=== PATIENT | male | born 1965 | race Caucasian/White ===

== ENCOUNTER 2024-02-07 11:12 | Inpatient (IN) | payer BC, SELFPAY ==
[2024-02-07 07:49] VITALS: BP 198/167
--- NOTE | 2024-02-07 08:06 | ED.GENMED ---
History of Present Illness
General
Chief Complaint: Fever
Source: patient and other (Friend)
Exam Limitations: none
Time Seen by Provider: 02/07/24 08:05
Nursing documentation reviewed up to this point in time: agreed with
History of Present Illness
History of Present Illness:
58-year-old male presents emergency room complaining of fever, tremors, stinging with urination yesterday. He had a similar episode when he had sepsis, and a heart valve problem. He was at [facility] when this happened.
Past History
Past History
ED Past Medical History: Valvular disease and Other (Mitral valve prolapse)
ED Past Surgical History: Cardiac (Mitral valve repair)
Social History
Tobacco: Non-smoker
Alcohol: Occasional
Drug: None
Personal:
Living: with family
Family History
Family History: Other (Noncontributory)
Review of Systems
Review of Systems
Allergies reviewed?: Yes
Constitutional: Reports fever and chills
EENT: Reports no symptoms
Respiratory: Reports no symptoms
Cardiac: Reports no symptoms
ABD/GI: Reports no symptoms
: Reports dysuria
Musculoskeletal: Reports no symptoms
Skin: Reports no symptoms
Neurological: Reports no symptoms
Endocrine: Reports no symptoms
Hematologic/Lymphatic: Reports no symptoms
Psychiatric: Reports no symptoms
Phy Exam
Physical Exam
Physical Exam:
Physical Exam
General: Fever 103.1
Neck: supple. no meningeal signs. normal posterior pharynx
Heart: s1/s2 regular rate and rhythm, no murmur. equal radial
pulses.
HEENT: Pupils equal round reactive to light, EOMI
Lungs: no acute respiratory distress. clear bilaterally
Abdomen: normal bowel sounds. not tender. no CVAT
Neuro: alert and oriented. no focal neurological deficits cranial nerves II through XII intact
Skin: no rash
Psychiatric: well kept. interactive and cooperative
Extremities: no edema. no calf tenderness. negative homans. good distal pulses
Sepsis
Sepsis Screening
Sepsis Assessment: Sepsis
Sepsis Screen
Sepsis Screen: Sepsis
Date: 02/07/24
Time: 13:54
Course
Orders/Labs/Results
Orders:
Orders
02/07/24 08:01
IV Insert/Care/Rem.- Treatment PRN
Straight cath- Treatment ONCE
02/07/24 08:15
IV Insert/Care/Rem.- Treatment PRN
Acetaminophen [Tylenol] 650 mg PO NOW STA
CR Chest - 2 Views Urgent
Comment:
Reason For Exam: fever
02/07/24 08:17
Complete Blood Count/With Diff Urgent
Comprehensive Metabolic Panel Urgent
Lactic Acid Q4H
Comment: ON ICE, CANCEL 2ND ORDER IF FIRST LACTIC ACID LEVEL <2
Urinalysis Reflex To Culture Urgent
Date Specimen was Collected: 02/07/24
Time Specimen was Collected: 08:02
Urine Microscopic Reflex Cult Urgent
Blood Culture Q30M
KRISTEN Source: Blood/Venous
Specimen Description:
Blood Culture Q30M
KRISTEN Source: Blood/Venous
Specimen Description:
Urine Culture Urgent
KRISTEN Source: U
Specimen Description:
Date Specimen was Collected: 02/07/24
Time Specimen was Collected: 08:02
02/07/24 08:22
COVID-19 Antigen Urgent
Source: Nasal Swab
Influenza A+B Rapid Molecular Urgent
KRISTEN Source: Nasal Swab
Specimen Description:
02/07/24 09:35
Cefepime HCl [Maxipime] 2,000 mg IV NOW STA
02/07/24 Lunch
Cholesterol Lowering
At Your Request: Non-Participating
Cholesterol Lowering: Sodium, 2 Gram
02/07/24 10:34
Admit/Transfer Patient As Directed
Co-Sign Provider:
Level of Care: Inpatient admission
Assign to:: Telemetry
Physician / Group: Dr. Etienne Leroy/Hospitalists
Diagnosis: Sepsis, urinary tract infection
Reason for Telemetry: Arrhythmia
Date to Stop Telemetry: 02/10/24
Time to Stop Telemetry: 11:00
Reason for Hospitalization: Sepsis, urinary tract infection
Expected length of stay greater than two midnights?: Yes
ELOS- Estimated Length of Stay in days: 2
I certify the patient meets the requirements for IP care: Yes
02/07/24 10:38
Code Status As Directed
Resuscitation Status: Full Code
02/07/24 12:00
CefTRIAXone [Rocephin] 1,000 mg IV Q24H
Sterile Water [Sterile Water For Injection] 10 ml IV Q24H
02/07/24 12:12
Aspirin Low Dose EC [Aspir Low (Enteric Coated)] 81 mg PO DAILY
Bisacodyl [Dulcolax] 10 mg RECTAL [id number] PRN
Docusate W/Senna [Senokot-S] 1 tablet PO BIDPRN PRN
Polyethylene Glycol Powder [Miralax] 17 grams PO DAILYPRN PRN
Rosuvastatin Calcium [Crestor] 20 mg PO DAILY
Valsartan [Diovan] 160 mg PO DAILY
02/07/24 12:12
Activity As Directed
Activity Level: As Tolerated
Intake/ Output As Directed
Frequency: q12h
Pneumatic Compression Sleeves As Directed
Type: Knee high
Vital Signs As Directed
Frequency: Per unit guidelines
DX Deep Vein Thrombosis Video Routine
02/07/24 12:15
Lactic Acid Q4H
Comment: ON ICE, CANCEL 2ND ORDER IF FIRST LACTIC ACID LEVEL <2
02/07/24 18:00
Enoxaparin Sodium [Lovenox] 40 mg SC QPM
02/08/24 06:00
Basic Metabolic Panel IN AM
Complete Blood Count/With Diff IN AM
Magnesium IN AM
02/09/24 06:00
Basic Metabolic Panel IN AM
Complete Blood Count/With Diff IN AM
02/10/24 06:00
Basic Metabolic Panel IN AM
Complete Blood Count/With Diff IN AM
02/10/24 11:00
DC Protocol for Telemetry ONCE
02/11/24 06:00
Basic Metabolic Panel IN AM
Complete Blood Count/With Diff IN AM
Abnormal Lab Results
02/07/24
08:17
Absolute Neuts (auto) 7.6 H 10^3/uL
(1.4-6.5)
Absolute Lymphs (auto) 0.4 L 10^3/uL
(1.2-3.4)
Neutrophils % 92.4 H %
(42.2-75.2)
Lymphocytes % 5.2 L %
(20.5-51.1)
Monocytes % 1.0 L %
(1.7-9.3)
Glucose 143 H mg/dl
(70-99)
Lactic Acid 2.1 H mmol/L
(0.7-2.0)
Ur Occult Blood Reflex 2+ A
(Negative)
Leukocyte Esterase Rfl 2+ A
(Negative)
Urine WBC (Reflex) 30-40 A /HPF
(0-5)
Urine Bacteria (Reflex) Few A
(Negative)
02/07/24 08:17
02/07/24 08:17
Vital Signs
Initial and Last Documented VS:
Initial Vital Signs
Temp Pulse Resp BP Pulse Ox
103.1 F H 108 20 198/167 97
02/07/24 07:49 02/07/24 07:49 02/07/24 07:49 02/07/24 07:49 02/07/24 07:49
Last Documented Vital Signs
Temp Pulse Resp BP Pulse Ox
98.3 F 92 18 125/67 96
02/07/24 12:09 02/07/24 12:09 02/07/24 12:09 02/07/24 12:09 02/07/24 12:09
MDM/Problems Addressed
Differential Diagnosis Includes:
Sepsis, UTI
MDM/Problems Addressed:
58-year-old male with fever, UTI. Admit to hospitalist. IV cefepime given.
Chronic conditions affecting care: Cardiomyopathy
*Radiology
Radiology exam reviewed: preliminary read by ED provider (Chest x-ray no acute findings)
*Pulse Oximetry
Patient hypoxic: no
*Critical Care Note
Total Time (30-74mins, 75-104mins- exclusive of procedures): Not Applicable
Patient Management
Social determinants of health affecting care: Living situation and Strong social support
Discussion with other providers: Hospitalist
Escalation/DeEscalation of care consider admission/obs:
Admit indicated
ED Attending Note
-
Portions of this chart may have been created with voice recognition software.� Occasional wrong word or��sound alike� substitutions may have occurred due to the inherent limitations of voice recognition software.
Discharge Plan
Departure
Patient Disposition: Admit
Date of Disposition: 02/07/24
Time of Disposition: 09:37
Admit to: Med/Surg
Presentation/result/management discussed w/ accepting MD/DO: Hospitalist
Patient with high blood pressure during this ER visit?: Yes
Condition: Good
Discharge Problem:
Acute UTI, Fever
Interventions
Interventions:
*Risk Screen - Suicide Last Done: 02/07/24 07:49
*General Assessment Last Done: 02/07/24 07:49
*Neglect/Abuse Screening Last Done: 02/07/24 08:26
ED- Fall Risk Assessment Last Done: 02/07/24 08:26
*ED COVID-19 Vaccine History Last Done: 02/07/24 07:49
*Nursing Disposition Last Done: 02/07/24 11:59
ED- Neurological Assessment Last Done: 02/07/24 08:26
ED-Skin Assessment Last Done: 02/07/24 08:26
Discharge Date and Time
Discharge Date/Time: 02/07/24 12:00
[2024-02-07 08:19] VITALS: BMI 34.2
[2024-02-07] MEDS: TYLENOL 650 MG PO (08:23)
[2024-02-07 08:44] LABS: Lactic Acid 2.1 mmol/L (0.7-2.0)
[2024-02-07 08:47] LABS: % Basophils 0.4 % (0-2); % Eosinophils 0.5 % (0-6); % Immature Granulocytes 0.5 % (0-0.5); % Lymphocytes 5.2 % (20.5-51.1); % Neutrophils 92.4 % (42.2-75.2); Absolute Lymphocytes 0.4 10^3/uL (1.2-3.4); Absolute Monocytes 0.1 10^3/uL (0.1-0.6); Absolute Neutrophils 7.6 10^3/uL (1.4-6.5); Hematocrit 47.5 % (39.0-52.0); Hemoglobin 16.5 g/dL (13.0-18.0); Mean Corp Hgb Conc. 34.7 g/dL (33.0-37.0); Mean Corpuscular Hgb 30.7 pg (27.0-31.0); Mean Corpuscular Volume 88.3 fL (80.0-94.0); Mean Platelet Volume 8.4 fL (7.4-10.4); Nucleated Red Blood Cells % 0 % (-); Platelet Count 157 10^3/uL (130-400); Red Blood Cell Count 5.38 10^6/uL (4.70-6.10); Red Cell Dist. Width 12.8 % (11.5-14.5); White Blood Cell Count 8.2 10^3/uL (4.8-10.8)
[2024-02-07 09:00] LABS: Urine Albumin Trace (Neg - Trace); Urine Bilirubin Negative (Negative); Urine Character Slightly Cloudy (Clear); Urine Color Yellow; Urine Glucose Negative (Negative); Urine Ketone Negative (Negative); Urine Leukocyte 2+ (Negative); Urine Nitrite Negative (Negative); Urine Occult Blood 2+ (Negative); Urine Urobilinogen Negative (Neg - 1+)
[2024-02-07 09:04] LABS: COVID-19 Antigen Negative (Negative)
[2024-02-07 09:10] LABS: ALT (SGPT) 37 U/L (0-50); AST (SGOT) 30 U/L (17-59); Albumin 4.7 g/dl (3.5-5.0); Alkaline Phosphatase 67 U/L (38-126); Blood Urea Nitrogen 16 mg/dl (9-20); Calcium 9.5 mg/dl (8.4-10.2); Carbon Dioxide 26 mmol/L (22-30); Chloride 101 mmol/L (98-107); Estimated Creatinine Clearance 103 ml/min; Glucose 143 mg/dl (70-99); Potassium 4.7 mmol/L (3.5-5.1); Sodium 139 mmol/L (135-145); Total Bilirubin 0.8 mg/dl (0.2-1.3); Total Protein 7.5 g/dl (6.3-8.2); eGFR > 60.00
[2024-02-07 09:11] LABS: Urine Bacteria Few (Negative); Urine Squamous Cell 0-2 /LPF (Few)
[2024-02-07 09:13] LABS: Urine Mucus Moderate
[2024-02-07 09:14] LABS: Urine Sperm Seen; Urine White Cell 30-40 /HPF (0-5)
[2024-02-07 09:15] LABS: Urine Red Blood Cell 0-2 /HPF (0-2)
--- NOTE | 2024-02-07 09:53 | HPS.HSE ---
Family Physician
-
Family Physician: Aroldo Woodard
Chief Complaint
-
Fever, Chills and Burning with Urination
History of Present Illness
58 y/o male with past medical history of deviated nasal septum, high PSA (with negative prostate biopsy), hypertension, mitral valve prolapse status post mitral valve repair, and gastroesophageal reflux disease, presented with fever, shaking chills,
burning with urination. Patient said that yesterday he noticed burning with urination, and this morning he went to work. Once he reached work, he noticed he was having shaking chills and fever, with symptoms getting worse. He denied any other
complaints.
Medical History
Past Medical History
Past Medical History: Reports Other (As per HPI above)
Past Surgical History: Reports Cardiac (Mitral Valve Repair)
Social History
Tobacco: Former Smoker
Alcohol: Occasional
Drug: Marijuana (gummies)
Family History
Family History: Not pertinent
Allergies / Home Medications
Allergies reflects when Allergies were last updated in [facility].
Home Medications with original date entered in [facility]
Allergy/Medication List:
Allergies
Allergy/AdvReac Type Severity Reaction Status Date / Time
No Known Allergies Allergy Verified 02/07/24 07:53
Home Medications
aspirin 81 mg tablet,delayed release 81 mg PO DAILY 02/07/24
rosuvastatin 20 mg tablet (Crestor) 20 mg PO DAILY 02/07/24
valsartan 160 mg tablet 160 mg PO DAILY 02/07/24
Review of Systems
-
A 12 point ROS was completed and negative except as noted: Yes
Physical Exam
Vital Signs
Vital Signs
Temp Pulse Resp BP Pulse Ox
103.1 F H 105 20 198/167 97
02/07/24 07:49 02/07/24 08:26 02/07/24 07:49 02/07/24 07:49 02/07/24 07:49
Physical Exam
General: No Apparent Distress, Comfortable and Conversant
HEENT: NormoCephalic and Moist mucous membranes
Respiratory: Clear
Cardiac: S1/S2 and Regular Rhythm
GI: Soft, Non Tender and Normal Bowel Sounds
Musculoskeletal: No Cyanosis and No Edema
Skin: Warm and Dry
Neuro: Awake, Alert and AO x 3
Psych: Calm and Intact Judgment/Insight
Laboratory Results
-
02/07/24 08:17
02/07/24 08:17
Laboratory Results
Lactic Acid 2.1 mmol/L (0.7-2.0) H 02/07/24 08:17
Total Bilirubin 0.8 mg/dl (0.2-1.3) 02/07/24 08:17
AST 30 U/L (17-59) 02/07/24 08:17
ALT 37 U/L (0-50) 02/07/24 08:17
Alkaline Phosphatase 67 U/L (38-126) 02/07/24 08:17
Impression/Plan
-
Assessment/Plan
Urinary Tract Infection
Sepsis Secondary to Urinary Tract Infection
Mild Lactic Acidosis
-Continue antibiotics with Rocephin
-Follow blood cultures and follow urine cultures
-Continue to monitor on telemetry
-Recheck lactic acid
-IV fluid boluses given lactic acidosis and hypotension earlier
Deviated nasal septum
High PSA (with negative prostate biopsy)
Hypertension
-Continue home Valsartan but hold for SBP<110 mmHg
Mitral valve prolapse status post mitral valve repair
Gastroesophageal reflux disease
DVT Prophylaxis: Lovenox
Code Status: Full Code
[2024-02-07] MEDS: MAXIPIME 2000 MG IV (09:58)
[2024-02-07 09:59] VITALS: BP 96/67
[2024-02-07 12:09] VITALS: BP 125/67
[2024-02-07 12:10] VITALS: BMI 32.2
--- NOTE | 2024-02-07 12:35 | PTCARENOTE ---
1205 Pt received from ED via stretcher. Pt ambulated from stretcher to room with steady gait. Pt oriented to staff and environment.
[2024-02-07] MEDS: ASPIR LOW (ENTERIC COATED) 81 MG PO (12:48)
[2024-02-07] MEDS: CRESTOR 20 MG PO (12:48)
[2024-02-07] MEDS: STERILE WATER FOR INJECTION 10 ML IV (12:49)
[2024-02-07] MEDS: ROCEPHIN 1000 MG IV (12:49)
[2024-02-07] MEDS: DIOVAN 160 MG PO (12:58)
[2024-02-07 14:39] LABS: Lactic Acid 2.2 mmol/L (0.7-2.0)
[2024-02-07 15:35] VITALS: BP 139/72
[2024-02-07] MEDS: NSS IV (16:49)
[2024-02-07] MEDS: NSS 1000 IV (16:57)
[2024-02-07] MEDS: LOVENOX 40 MG SC (17:20)
[2024-02-07 20:26] VITALS: BP 187/83
[2024-02-07 23:39] VITALS: BP 176/82
[2024-02-08 01:14] LABS: Lactic Acid 0.9 mmol/L (0.7-2.0)
[2024-02-08 01:20] LABS: Blood Urea Nitrogen 16 mg/dl (9-20); Calcium 9.1 mg/dl (8.4-10.2); Carbon Dioxide 22 mmol/L (22-30); Chloride 105 mmol/L (98-107); Estimated Creatinine Clearance 124 ml/min; Glucose 126 mg/dl (70-99); Potassium 4.1 mmol/L (3.5-5.1); Sodium 137 mmol/L (135-145); eGFR > 60.00
[2024-02-08 03:32] VITALS: BP 124/70
[2024-02-08 07:33] VITALS: BP 120/69
[2024-02-08 07:37] LABS: % Basophils 0.3 % (0-2); % Eosinophils 0.2 % (0-6); % Immature Granulocytes 0.8 % (0-0.5); % Lymphocytes 9.6 % (20.5-51.1); % Monocytes 7.6 % (1.7-9.3); % Neutrophils 81.5 % (42.2-75.2); Absolute Immature Granulocytes 0.1 10^3/uL (0-0.05); Absolute Lymphocytes 1.3 10^3/uL (1.2-3.4); Absolute Neutrophils 10.6 10^3/uL (1.4-6.5); Hematocrit 45.8 % (39.0-52.0); Hemoglobin 15.1 g/dL (13.0-18.0); Mean Corpuscular Volume 90.9 fL (80.0-94.0); Mean Platelet Volume 8.5 fL (7.4-10.4); Nucleated Red Blood Cells % 0 % (-); Platelet Count 129 10^3/uL (130-400); Red Blood Cell Count 5.04 10^6/uL (4.70-6.10); Red Cell Dist. Width 13.2 % (11.5-14.5)
[2024-02-08 07:52] LABS: Blood Urea Nitrogen 14 mg/dl (9-20); Carbon Dioxide 20 mmol/L (22-30); Chloride 105 mmol/L (98-107); Estimated Creatinine Clearance 124 ml/min; Glucose 124 mg/dl (70-99); Magnesium 1.8 mg/dl (1.6-2.3); Potassium 3.9 mmol/L (3.5-5.1); Sodium 138 mmol/L (135-145); eGFR > 60.00
[2024-02-08] MEDS: CRESTOR 20 MG PO (10:36)
[2024-02-08] MEDS: DIOVAN 160 MG PO (10:36)
[2024-02-08] MEDS: ASPIR LOW (ENTERIC COATED) 81 MG PO (10:36)
[2024-02-08 11:07] VITALS: BP 130/68
[2024-02-08] MEDS: STERILE WATER FOR INJECTION 10 ML IV (11:38)
[2024-02-08] MEDS: ROCEPHIN 1000 MG IV (11:39)
--- NOTE | 2024-02-08 11:41 | W.PN.HOSP.TC ---
Today's Communication/Plan
-
Doing better, bladder scans, sepsis improved but await urine culture ID and sensitivities
Assessment / Plan
Assessment / Plan
Physical Exam
General: Not in acute distress
HEENT: Normocephalic and Moist mucous membranes
Respiratory: Clear to Auscultation Bilaterally
Cardiac: S1/S2 and Regular Rhythm
GI: Soft, Non Tender and Normal Bowel Sounds
Musculoskeletal: No Cyanosis and No Edema
Skin: Warm and Dry
Neuro: Awake, Alert and Oriented x 3
Psych: Calm and Intact Judgment/Insight
Assessment/Plan
Urinary Tract Infection
Sepsis Secondary to Urinary Tract Infection
History of Urethral Strictures?
Mild Lactic Acidosis - RESOLVED
-Continue antibiotics with Rocephin
-Blood cultures with no growth to date
-Urine cultures showing gram negative bacilli --> ID sensitivities should be available by tomorrow February 09, 2024
-Continue to monitor on telemetry
-Check bladder scans/PVRs given history of urethral strictures
Deviated nasal septum
High PSA (with negative prostate biopsy)
Hypertension
-Continue home Valsartan but hold for SBP<110 mmHg
Mitral valve prolapse status post mitral valve repair
Gastroesophageal reflux disease
DVT Prophylaxis: Lovenox
Code Status: Full Code
Anticipated Discharge: Within 24 hours
Subjective/Interval History
-
Date of Service: February 08, 2024
Patient was seen and examined. He reported his dysuria has improved and his shaking chills are gone.
Objective Data
-
Labs:
Laboratory Results
02/08/24 02/08/24
00:44 07:05
WBC 13.0 H
Hgb 15.1
Hct 45.8
Plt Count 129 L
Sodium 137 138
Potassium 4.1 3.9
Chloride 105 105
Carbon Dioxide 22 20 L
BUN 16 14
Creatinine 0.8 0.8
Glucose 126 H 124 H
Calcium 9.1 9.0
Vital Signs:
Vital Signs
Temp Pulse Resp BP Pulse Ox
98.0 F 80 19 130/68 98
02/08/24 11:07 02/08/24 11:07 02/08/24 11:07 02/08/24 11:07 02/08/24 11:07
I&O
02/07/24 02/08/24 02/09/24
06:59 06:59 06:59
Intake Total 1240 / 1240
Balance 1240 / 1240
--- NOTE | 2024-02-08 11:55 | CM ---
Reviewed chart, met with patient to obtain information for assessment. Patient stated that he lives with his in a two story home with two steps to enter. He described himself as independent with his ADLs, personal care, dressing and bathing. He
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 Patient can drive and can transport himself to all of his appointments and he does his own shopping. Patient is employed non profit director. He denied use of any DME. He has never been to a SNF.
Patient has a prescription plan and uses, [facility] in [place] for all of his medications.
His PCP is, Aroldo Woodard.
Patient stated that functionally he is at baseline and his will pick him up when he is ready for discharge. Spoke with RN, who stated that per attending patient won't be medically cleared for discharge until tomorrow at earliest.
Patient denied that he will have any needs from CM.
Plan: Case management will continue to follow and assist with discharge planning. Home when stable for discharge.
[2024-02-08 15:07] VITALS: BP 114/66
[2024-02-08] MEDS: LOVENOX 40 MG SC (17:49)
[2024-02-08 19:35] VITALS: BP 116/74
[2024-02-08 23:44] VITALS: BP 132/69
[2024-02-09 03:35] VITALS: BP 127/71
[2024-02-09 07:16] LABS: Blood Urea Nitrogen 17 mg/dl (9-20); Carbon Dioxide 22 mmol/L (22-30); Chloride 106 mmol/L (98-107); Estimated Creatinine Clearance 124 ml/min; Glucose 102 mg/dl (70-99); Sodium 140 mmol/L (135-145); eGFR > 60.00
--- NOTE | 2024-02-09 07:26 | W.PN.HOSP.TC ---
Addendum entered and electronically signed by Etienne Leroy MD 02/09/24 17:59:
As per patient's nurse, QTc on EKG done earlier today was 448 ms.
Original Note:
Today's Communication/Plan
-
Discharge today
Assessment / Plan
Assessment / Plan
Physical Exam
General: Not in acute distress
HEENT: Normocephalic and Moist mucous membranes
Respiratory: Clear to Auscultation Bilaterally
Cardiac: S1/S2 and Regular Rhythm
GI: Soft, Non Tender and Normal Bowel Sounds. No CVA tenderness on either side.
Musculoskeletal: No Cyanosis and No Edema
Skin: Warm and Dry
Neuro: Awake, Alert and Oriented x 3
Psych: Calm and Intact Judgment/Insight
Assessment/Plan
Citrobacter koseri Urinary Tract Infection
Sepsis Secondary to Urinary Tract Infection
Possible Prostatitis, as per urology
History of Urethral Strictures?
Mild Lactic Acidosis - RESOLVED
-Continue antibiotics with Rocephin, on discharge switch to Cipro 500 mg Q12H for 14 days and Flomax 0.4 mg daily
-Blood cultures with no growth to date
-Urine cultures showing Citrobacter koseri
-Continue to monitor on telemetry
-Consulted urology given patient reported abnormal urinary stream, per urology, okay to discharge with the antibiotic and Flomax regimen above
-Call urologist Dr. Momin on 02/11/24 for follow up in 2 to 3 weeks
Deviated nasal septum
High PSA (with negative prostate biopsy)
Hypertension
-Continue home Valsartan but hold for SBP<110 mmHg
Mitral valve prolapse status post mitral valve repair
Gastroesophageal reflux disease
DVT Prophylaxis: Lovenox
Code Status: Full Code
More than 30 minutes spent in discharge including
Final examination of the patient
Summarizing hospital stay
Instructions for continuing care to all relevant caregivers
Preparation of discharge records, prescriptions, and referral forms
Total time spent (in minutes): 38
Anticipated Discharge: Today
Subjective/Interval History
-
Date of Service: February 09, 2024
Patient was seen and examined. He reported feeling a lot better, reported some disturbances in his urinary stream, but overall feeling well and agreeable to go home today.
Objective Data
-
Labs:
Laboratory Results
02/09/24
05:38
WBC Pending
Hgb Pending
Hct Pending
Plt Count Pending
Sodium 140
Potassium 4.0
Chloride 106
Carbon Dioxide 22
BUN 17
Creatinine 0.8
Glucose 102 H
Calcium 9.0
Vital Signs:
Vital Signs
Temp Pulse Resp BP Pulse Ox
98.2 F 79 16 127/71 98
02/09/24 03:35 02/09/24 03:35 02/09/24 03:35 02/09/24 03:35 02/09/24 03:35
I&O
02/08/24 02/09/24 02/10/24
06:59 06:59 06:59
Intake Total 1240 / 1240 240 / 240
Balance 1240 / 1240 240 / 240
[2024-02-09 07:46] LABS: % Basophils 0.3 % (0-2); % Eosinophils 1.5 % (0-6); % Immature Granulocytes 2.4 % (0-0.5); % Lymphocytes 11.1 % (20.5-51.1); % Monocytes 9.7 % (1.7-9.3); Absolute Eosinophils 0.2 10^3/uL (0-0.7); Absolute Immature Granulocytes 0.3 10^3/uL (0-0.05); Absolute Lymphocytes 1.2 10^3/uL (1.2-3.4); Absolute Monocytes 1.1 10^3/uL (0.1-0.6); Absolute Neutrophils 8.2 10^3/uL (1.4-6.5); Hematocrit 44.5 % (39.0-52.0); Hemoglobin 14.8 g/dL (13.0-18.0); Mean Corp Hgb Conc. 33.3 g/dL (33.0-37.0); Mean Corpuscular Volume 90.1 fL (80.0-94.0); Mean Platelet Volume 8.9 fL (7.4-10.4); Nucleated Red Blood Cells % 0 % (-); Platelet Count 140 10^3/uL (130-400); Red Blood Cell Count 4.94 10^6/uL (4.70-6.10); Red Cell Dist. Width 13.1 % (11.5-14.5); White Blood Cell Count 10.9 10^3/uL (4.8-10.8)
[2024-02-09] MEDS: ASPIR LOW (ENTERIC COATED) 81 MG PO (07:53)
[2024-02-09] MEDS: CRESTOR 20 MG PO (07:53)
[2024-02-09] MEDS: DIOVAN 160 MG PO (07:53)
[2024-02-09] MEDS: TYLENOL 500 MG PO (08:31)
[2024-02-09 08:44] VITALS: BP 110/67
--- NOTE | 2024-02-09 10:36 | PTCARENOTE ---
patient c/o decreased urine flow and hesitancy. He voided 100mls of clear bradly urine. bladder scanned for 75mls. I communicated with to both Dr. Rucker and Dr. Leroy, will continue to monitor.
--- NOTE | 2024-02-09 11:04 | CON.MD ---
Consultation - Medical
-
see dictated note
pt followed by dr john
remote hx of stx- had cysto in 2019- wide open- no narrowing
recent elevation of psa and bx in jan 2024- path negative
now admitted with fever/dysuria- ucx + for citrobacter
some decreased flow of stream and hesitancy
pvr only 75cc
plan
suspect more bpg than stx
pvr acceptable
would start flomax and discharge with this ed
infx may be due to bx- would rec total of 14 days of antibx and schedule outpt f/u with dr john in 2-3 weeks
[2024-02-09] MEDS: ROCEPHIN 1000 MG IV (11:34)
[2024-02-09] MEDS: FLOMAX 0.4 MG PO (11:34)
[2024-02-09] MEDS: STERILE WATER FOR INJECTION 10 ML IV (11:34)
[2024-02-09 13:07] VITALS: BP 104/65
[2024-02-09 16:33] VITALS: BP 124/68
[2024-02-09] MEDS: CIPRO 500 MG PO (18:57)
== END 2024-02-09 19:05 | disposition home or self-care (01) | DRG 872 ==
LOC: 3 WEST ACU 11:12
PROVIDERS: Emergency Medicine; ADMITTING PHYSICIAN Hospitalist; CONSULT PHYSICIAN Specialist; EMERGENCY PHYSICIAN Emergency Medicine; FAMILY PHYSICIAN Family Medicine
DX: A41.9 Sepsis, unspecified organism (principal); N39.0 Urinary tract infection, site not specified; E87.20 Acidosis, unspecified; N40.0 Benign prostatic hyperplasia without lower urinary tract symptoms; J34.2 Deviated nasal septum; I10 Essential (primary) hypertension; K21.9 Gastro-esophageal reflux disease without esophagitis; Z79.899 Other long term (current) drug therapy; Z87.891 Personal history of nicotine dependence; B96.89 Other specified bacterial agents as the cause of diseases classified elsewhere
CPT/HCPCS: 71046; 80048; 80053; 81003; 81015; 83605; 83735; 85025; 87040; 87077; 87086; 87186; 87502; 87811; 96374; 99285